=== PATIENT | female | born 2000 | race African-American/Black ===

== ENCOUNTER 2020-05-05 22:13 | Emergency (ER) | payer OTHER ==
--- NOTE | 2020-05-05 22:27 | PDOC ---
History of Present Illness - General Chief Complaint: Sore Throat Stated Complaint: FEVER/TONSILS Time Seen by Provider: 05/05/20 22:21 History Source: Patient - History of Present Illness Initial Comments: 05/05/20 22:21 19 year old female with throat pain x 3 weeks with tactile temps and chills at home for 3-4 days . patient reports being seen at outside hospital , reports having a throat swab with no treatment. no drooling no hot potato voice PMHX: tonsillitis Past History - Medical History Allergies/Adverse Reactions: Allergies Allergy/AdvReac Type Severity Reaction Status Date / Time No Known Allergies Allergy Verified 05/05/20 22:22 Home Medications: Ambulatory Orders Oxycodone HCl/Acetaminophen [Percocet 5/325 -] 1 tab PO BID #6 tab 10/14/15 Amoxicillin/Potassium Clav [Augmentin 875-125 Tablet] 1 each PO BID #20 tablet 05/05/20 - Immunization History Immunization Up to Date: Yes - Psycho-Social/Smoking History Smoking History: Never smoked Review of Systems - Review of Systems Able to Perform ROS?: Yes Is the patient limited [place] proficient: No Constitutional: Yes: Chills, Fever HEENTM: Yes: Throat Pain Respiratory: No: Symptoms reported, See HPI, Cough, Orthopnea, Shortness of Breath, SOB with Exertion, SOB at Rest, Stridor, Wheezing, Productive cough, Hemoptysis, Other Cardiac (ROS): No: Symptoms Reported, See HPI, Chest Pain, Edema, Irregular Heart Rate, Lightheadedness, Palpitations, Syncope, Chest Tightness, Other *Physical Exam - Vital Signs 05/05/20 22:27 Last Vital Signs Temp Pulse Resp BP Pulse Ox 100.3 F H 110 H 18 117/83 97 05/05/20 22:21 05/05/20 22:21 05/05/20 22:21 05/05/20 22:21 05/05/20 22:21 - Physical Exam General Appearance: Yes: Appropriately Dressed HEENT: positive: Tonsillar Exudate, Tonsillar Erythema, Other (almost kissing tonsils with exudate. ) Neck: positive: Lymphadenopathy (R), Lymphadenopathy (L) Cardiovascular: positive: Regular Rate Extremity: positive: Normal Capillary Refill, Normal Inspection, Normal Range of Motion Integumentary: positive: Normal Color, Dry, Warm Neurologic: positive: Fully Oriented, Alert, Normal Mood/Affect Medical Decision Making - Medical Decision Making 05/05/20 23:22 A: tonsillitis, mono vs strep P: will empirically treat. throat culture pending decadron pain control augmentin Discharge - Discharge Information Problems reviewed: Yes Clinical Impression/Diagnosis: Tonsillitis Pharyngitis Qualifiers: Pharyngitis/tonsillitis etiology: unspecified etiology Qualified Code(s): J02.9 - Acute pharyngitis, unspecified Disposition: HOME - Additional Discharge Information Prescriptions: Amoxicillin/Potassium Clav [Augmentin 796-125 Tablet] 1 each PO BID #20 tablet - Follow up/Referral - Patient Discharge Instructions Patient Printed Discharge Instructions: DI for Pharyngitis/Tonsillopharyngitis -- Adult Additional Instructions: drink plenty of fluids. gargle with warm salty water. take augmentin as prescribed. take ibuprofen every 6 hours as needed for pain/ fever take tylenol every 6 hours needed for pain / fever. - Post Discharge Activity
[2020-05-05] MEDS ORDERED: IBUPROFEN 600 MG TABLET (FP) PO ONE ×2 (22:28→22:32)
[2020-05-05 22:34] VITALS: BP 117/83; PULSE 110; BMI 20.5
[2020-05-05] MEDS ORDERED: AMOX TR/POT CLAV 875MG/125MG TABLETS (FP) PO ONE (22:52)
[2020-05-05] MEDS ORDERED: AMOX TR/POT CLAV 875MG/125MG TABLETS (FP) ONE (23:00)
[2020-05-05] MEDS ORDERED: DEXAMETHASONE SOD PHOSPHATE 10 MG/1 ML VIAL ONE (23:00)
[2020-05-05] MEDS ORDERED: DEXAMETHASONE 4 MG TABLET (FP) PO ONE (23:00)
--- NOTE | 2020-05-05 23:11 | PDOC ---
*Physical Exam - Vital Signs Last Vital Signs Temp Pulse Resp BP Pulse Ox 100.3 F H 110 H 18 117/83 97 05/05/20 22:21 05/05/20 22:21 05/05/20 22:21 05/05/20 22:21 05/05/20 22:21 ED Treatment Course - Medications Given in the ED: ED Medications Discontinued Medications Generic Name Dose Route Start Last Admin Trade Name [place] PRN Reason Stop Dose Admin Amoxicillin/Clavulanate Potassium 1 tab 05/05/20 22:52 05/05/20 23:02 Augmentin - 875mg Tablet PO 05/05/20 22:53 1 tab ONCE ONE Administration Dexamethasone 10 mg 05/05/20 23:00 05/05/20 23:02 Decadron - PO 05/05/20 23:01 10 mg ONCE ONE Administration Ibuprofen 600 mg 05/05/20 22:28 05/05/20 22:34 Motrin - PO 05/05/20 22:29 600 mg ONCE ONE Administration Medical Decision Making - Medical Decision Making 05/05/20 23:11 Patient seen by the advanced practice provider under my supervision. Ancillary testing reviewed as necessary. I agree with plan as outlined by the advanced practice provider. Discharge - Discharge Information Problems reviewed: Yes Clinical Impression/Diagnosis: Tonsillitis Pharyngitis Qualifiers: Pharyngitis/tonsillitis etiology: unspecified etiology Qualified Code(s): J02.9 - Acute pharyngitis, unspecified Disposition: HOME - Additional Discharge Information Prescriptions: Amoxicillin/Potassium Clav [Augmentin 875-125 Tablet] 1 each PO BID #20 tablet - Follow up/Referral - Patient Discharge Instructions Patient Printed Discharge Instructions: DI for Pharyngitis/Tonsillopharyngitis -- Adult Additional Instructions: drink plenty of fluids. gargle with warm salty water. take augmentin as prescribed. take ibuprofen every 6 hours as needed for pain/ fever take tylenol every 6 hours needed for pain / fever. - Post Discharge Activity
[2020-05-05 23:18] VITALS: TEMP 99.3
== END 2020-05-05 23:28 | disposition home or self-care (01) ==
LOC: JER 22:13
DX: J03.90 Acute tonsillitis, unspecified (principal)
CPT/HCPCS: 87070; 87077; 87880; 99283-25

== ENCOUNTER 2021-03-30 03:25 | Emergency (ER) | payer OTHER ==
[2021-03-30 03:40] VITALS: BP 125/73; TEMP 98.5; BMI 19.4
[2021-03-30] MEDS ORDERED: ACETAMINOPHEN 325 MG TABLET (FP) PO ONE (04:14)
[2021-03-30] MEDS ORDERED: SODIUM CHLORIDE 1,000 ML IV STA ×2 (04:16→06:04)
[2021-03-30] MEDS ORDERED: ACETAMINOPHEN 325 MG TABLET (FP) ONE (04:16)
[2021-03-30 04:34] LABS: BASO % 0.3 % (0-2.0); EOS % 0.1 % (0-4.5); HEMOGLOBIN 11.5 GM/dL (10.7-15.3); LYMPH % 9.4 % (8-40); MCH 28.8 pg (25.7-33.7); MCHC 32.8 g/dl (32.0-36.0); MEAN CELL VOLUME 87.5 fl (80-96); MEAN PLT VOLUME 7.8 fl (7.5-11.1); MONO % 12.4 % (3.8-10.2); NEUT % 77.8 % (42.8-82.8); PLATELET COUNT 362 K/MM3 (134-434); RDW 13.6 % (11.6-15.6); WHITE BLOOD COUNT 10.5 K/mm3 (4.0-10.0)
[2021-03-30 04:38] LABS: EPI CELLS 11 /uL (0-25.1); HCG,QUALITATIVE URINE Negative; HYALINE CASTS 1 /uL (0-3.1); URINE APPEARANCE TURBID; URINE BACTERIA >9,000 /uL (0-1359); URINE BILIRUBIN NEGATIVE (NEGATIVE); URINE COLOR YELLOW; URINE GLUCOSE (UA) NEGATIVE (NEGATIVE); URINE KETONE NEGATIVE (NEGATIVE); URINE LEUK ESTERASE 2+ (NEGATIVE); URINE NITRITE POSITIVE (NEGATIVE); URINE PROTEIN 1+ (NEGATIVE); URINE RBC 54 /uL (0-23.9); URINE WBC 2165 /uL (0-25.8)
[2021-03-30 05:00] LABS: CALCIUM 9.3 mg/dL (8.5-10.1)
[2021-03-30 05:01] LABS: ALBUMIN 3.7 g/dl (3.4-5.0); BLOOD UREA NITROGEN 7.7 mg/dL (7-18)
[2021-03-30 05:04] LABS: CREATININE 0.8 mg/dL (0.55-1.3)
[2021-03-30 05:05] LABS: BILIRUBIN,TOTAL 0.5 mg/dL (0.2-1)
[2021-03-30 05:06] LABS: TOT PROT 7.7 g/dl (6.4-8.2)
[2021-03-30 05:26] LABS: EPI CELLS 8 /uL (0-25.1); HYALINE CASTS 1 /uL (0-3.1); PH,URINE 5.5 (5.0-8.0); URINE APPEARANCE CLOUDY; URINE BACTERIA >9,000 /uL (0-1359); URINE BILIRUBIN NEGATIVE (NEGATIVE); URINE COLOR YELLOW; URINE GLUCOSE (UA) NEGATIVE (NEGATIVE); URINE KETONE 1+ (NEGATIVE); URINE LEUK ESTERASE 3+ (NEGATIVE); URINE NITRITE POSITIVE (NEGATIVE); URINE PROTEIN 1+ (NEGATIVE); URINE RBC 34 /uL (0-23.9); URINE WBC 1782 /uL (0-25.8)
[2021-03-30] MEDS ORDERED: CEFTRIAXONE 1 GM/50 ML BAG ONE (05:38)
[2021-03-30] MEDS ORDERED: CEFTRIAXONE 1,000 MG in DEXTROSE 5%-WATER - 50 ML IVPB ONE (05:42)
[2021-03-30 06:14] VITALS: PULSE 86
== END 2021-03-30 06:48 | disposition home or self-care (01) ==
LOC: JER 03:25
PROC: 3E03329 Introduction of Other Anti-infective into Peripheral Vein, Percutaneous Approach (ICD-10-PCS; principal; 2021-03-30)
PROC: 3E0337Z Introduction of Electrolytic and Water Balance Substance into Peripheral Vein, Percutaneous Approach (ICD-10-PCS; 2021-03-30)
PROC: 3E0337Z Introduction of Electrolytic and Water Balance Substance into Peripheral Vein, Percutaneous Approach (ICD-10-PCS; 2021-03-30)
DX: N10 Acute pyelonephritis (principal)
CPT/HCPCS: 36415; 74177-TC; 80053; 81003; 84703; 85025; 87086; 87186; 87491; 87591; 99285-25; Q9967

== ENCOUNTER 2023-06-13 15:53 | Emergency (ER) | payer OTHER ==
[2023-06-13 15:58] VITALS: TEMP 98.2; BMI 18.0
[2023-06-13] MEDS ORDERED: ACETAMINOPHEN 1000 MG/100 ML BAG IVPB ONE (17:08)
[2023-06-13] MEDS ORDERED: SODIUM CHLORIDE 0.9% 1000 ML INFUS.BAG IV ONE (17:09)
[2023-06-13] MEDS ORDERED: ACETAMINOPHEN INJECTION 100 ML IVPB ONE (17:23)
[2023-06-13 17:42] LABS: BASO % 0.3 % (0-2.0); EOS % 1.1 % (0-4.5); HEMATOCRIT 35.3 % (32.4-45.2); HEMOGLOBIN 11.6 GM/dL (10.7-15.3); LYMPH % 9.2 % (8-40); MCH 28.3 pg (25.7-33.7); MCHC 32.9 g/dl (32.0-36.0); MEAN PLT VOLUME 7.3 fl (7.5-11.1); MONO % 6.3 % (3.8-10.2); NEUT % 83.1 % (42.8-82.8); PLATELET COUNT 429 10^3/uL (134-434); RBC 4.11 M/mm3 (3.60-5.2); RDW 14.6 % (11.6-15.6); WHITE BLOOD COUNT 8.6 K/mm3 (4.0-10.0)
[2023-06-13 17:59] LABS: CHLORIDE 106 mmol/L (98-107); POTASSIUM 3.5 mmol/L (3.5-5.1); SODIUM 141 mmol/L (136-145)
[2023-06-13 18:01] LABS: CALCIUM 9.2 mg/dL (8.5-10.1)
[2023-06-13 18:02] LABS: ANION GAP 10 MMOL/L (8-16); BLOOD UREA NITROGEN 15.3 mg/dL (7-18); CO2 25 mmol/L (21-32); GLUCOSE,RANDOM 95 mg/dL (74-106)
[2023-06-13 18:05] LABS: CREATININE 0.8 mg/dL (0.55-1.3); SGOT/AST 14 U/L (15-37); SGPT/ALT 15 U/L (13-61)
[2023-06-13 18:06] LABS: BILIRUBIN,TOTAL 0.8 mg/dL (0.2-1)
[2023-06-13 18:07] LABS: TOT PROT 7.5 g/dl (6.4-8.2)
[2023-06-13 18:08] LABS: ALK PHOS 77 U/L (45-117)
[2023-06-13 19:08] LABS: EPI CELLS 14 /uL (0-25.1); HYALINE CASTS 0 /uL (0-3.1); PH,URINE 8.5 (5.0-8.0); URINE APPEARANCE CLOUDY; URINE BACTERIA 28 /uL (0-1359); URINE BILIRUBIN NEGATIVE (NEGATIVE); URINE COLOR YELLOW; URINE GLUCOSE (UA) NEGATIVE (NEGATIVE); URINE KETONE 2+ (NEGATIVE); URINE LEUK ESTERASE NEGATIVE (NEGATIVE); URINE NITRITE NEGATIVE (NEGATIVE); URINE PROTEIN NEGATIVE (NEGATIVE); URINE RBC 175 /uL (0-23.9); URINE WBC 9 /uL (0-25.8)
[2023-06-13] MEDS ORDERED: METOCLOPRAMIDE HCL INJECTION 10 MG/2 ML VIAL IVPUSH ONE (19:27)
[2023-06-13] MEDS ORDERED: KETOROLAC TROMETHAMINE 15 MG/ML VIAL IVPUSH ONE (19:28)
[2023-06-13] MEDS ORDERED: KETOROLAC TROMETHAMINE 15 MG/ML VIAL ONE (19:53)
[2023-06-13] MEDS ORDERED: MEPERIDINE HCL 25 MG/ML VIAL IVPUSH ONE (20:23)
[2023-06-13 20:46] VITALS: BP 104/77; PULSE 89; RESP 18
[2023-06-13] MEDS ORDERED: morphine CARPU-JECT 2 MG/1 ML DISP.SYRIN IVPUSH ONE (20:57)
[2023-06-13] MEDS ORDERED: METOCLOPRAMIDE HCL INJECTION 10 MG/2 ML VIAL ONE (21:00)
== END 2023-06-13 23:53 | disposition home or self-care (01) ==
LOC: JER 15:53
PROC: 3E033NZ Introduction of Analgesics, Hypnotics, Sedatives into Peripheral Vein, Percutaneous Approach (ICD-10-PCS; principal; 2023-06-13)
PROC: 3E0333Z Introduction of Anti-inflammatory into Peripheral Vein, Percutaneous Approach (ICD-10-PCS; 2023-06-13)
PROC: 3E033GC Introduction of Other Therapeutic Substance into Peripheral Vein, Percutaneous Approach (ICD-10-PCS; 2023-06-13)
PROC: 3E033GC Introduction of Other Therapeutic Substance into Peripheral Vein, Percutaneous Approach (ICD-10-PCS; 2023-06-13)
DX: N83.201 Unspecified ovarian cyst, right side (principal); R10.814 Left lower quadrant abdominal tenderness
CPT/HCPCS: 36415; 76830-TC; 80053; 81003; 84702; 85025; 87491; 87591; 99284-25